=== PATIENT | male | born 1970 | race Caucasian/White ===

== ENCOUNTER 2021-06-17 04:06 | Inpatient (IN) ==
[2021-06-17] MEDS ORDERED: *HR* Heparin 5,000 UNIT/ML VIAL IVP ONE (04:10)
[2021-06-17] MEDS ORDERED: Aspirin 325 MG TABLET PO ONE (04:12)
[2021-06-17] MEDS ORDERED: Nitroglycerin 0.4 MG TAB.SUBL SL ONE (04:19)
[2021-06-17] MEDS: Nitroglycerin 0.4 MG TAB.SUBL SL PRN ×4 (04:20→07:37)
[2021-06-17 04:22] LABS: Basophils # 0.1 K/mcL (0.0-0.2); Basophils % 0.5 %; Eosinophils # 0.1 K/mcL (0.0-0.6); Eosinophils % 0.9 %; Hematocrit 45.7 % (37.5-50.1); Hemoglobin 15.5 g/dL (12.9-16.9); Immature Granulocytes % 0.2 % (0-4); Lymphocytes # 3.9 K/mcL (0.6-4.6); Lymphocytes % 32.2 %; Mean Corpuscular HGB Conc 33.9 g/dL (31.6-35.5); Mean Corpuscular Hemoglobin 30.6 pg (28.0-33.3); Mean Corpuscular Volume 90.1 fL (83.0-100.0); Mean Platelet Volume 9.3 fL (9.4-12.4); Monocytes # 1.1 K/mcL (0.0-1.3); Monocytes % 8.9 %; Platelet Count 268 K/mcL (140-400); Red Blood Count 5.07 M/mcL (4.19-5.50); Red Cell Distribution Width 13.2 % (11.5-14.5); Segmented Neutrophils % 57.3 %; White Blood Count 12.2 K/mcL (4.3-11.1)
[2021-06-17] MEDS ORDERED: *HR* Ticagrelor 90 MG TABLET PO ONE (04:24)
[2021-06-17 04:29] LABS: Prothrombin Time 10.8 Seconds (9.4-12.1)
[2021-06-17 04:32] LABS: Activated Partial Thrombo Time 32.8 Seconds (26.0-36.0)
[2021-06-17] MEDS ORDERED: Nitroglycerin 1,000 MCG/5 ML VIAL IV ONE (04:36)
[2021-06-17] MEDS ORDERED: 0.9 % Sodium Chloride 2,000 ML ONE (04:36)
[2021-06-17] MEDS ORDERED: *HR* Heparin 10,000 UNIT/10 ML VIAL ONE (04:36)
[2021-06-17] MEDS ORDERED: Morphine Sulfate 2 MG/ML SYRINGE IVP ONE (04:36)
[2021-06-17] MEDS ORDERED: ISOVUE-370 200 ML INFUS..BTL ONE ×2 (04:36→05:17)
[2021-06-17] MEDS ORDERED: Heparin 1,000 UNITS/500 mL 500 ML ONE ×2 (04:36→05:05)
[2021-06-17] MEDS ORDERED: Tirofiban 12.5 MG/250ML 12.5 MG/250 ML BAG ONE (04:42)
[2021-06-17 04:44] LABS: BUN/Creatinine Ratio 18 (6-26); Blood Urea Nitrogen 19 mg/dL (6-20); Calcium 8.9 mg/dL (8.6-10.3); Carbon Dioxide 21 mEq/L (23-29); Chloride 105 mEq/L (98-107); Glucose 124 mg/dL (70-105); Magnesium 1.9 mg/dL (1.6-2.6); Osmolality,Calculated 290 (280-300); Potassium 3.4 mEq/L (3.5-5.1); Sodium 138 mEq/L (136-145); eGFR For African Americans > 60 (> 60); eGFR For Non-African Americans > 60 (> 60)
[2021-06-17] MEDS ORDERED: *HR* Midazolam HCl 2 MG/2 ML VIAL ONE (04:46)
[2021-06-17] MEDS ORDERED: *HR* FentaNYL (PF) 100 MCG/2 ML VIAL ONE (04:46)
[2021-06-17 04:47] LABS: Troponin I 0.04 ng/mL (< 0.04)
[2021-06-17] MEDS ORDERED: Ondansetron 4 MG/2 ML VIAL ONE (04:57)
[2021-06-17 05:17] LABS: Influenza A PCR Negative (Negative); Influenza B PCR Negative (Negative); Resp. Syncytial Virus PCR Negative (Negative)
[2021-06-17 05:19] LABS: SARS-CoV-2 by PCR (In House) Negative (Negative)
[2021-06-17] MEDS ORDERED: Perflutren Lipid Microsphere 1.3 ML in 0.9 % Sodium Chloride 8.7 ML IVP PRN (05:43)
[2021-06-17] MEDS ORDERED: Tirofiban 12.5 MG/250ML 12.5 MG/250 ML BAG IVC SCH (05:45)
[2021-06-17] MEDS ORDERED: *HR* Ticagrelor 90 MG TABLET PO SCH (09:00)
[2021-06-17] MEDS ORDERED: Metoprolol XL (24 HR) Succ 25 MG TAB.ER.24H PO SCH (09:00)
[2021-06-17] MEDS: Acetaminophen 325 MG TABLET PO PRN ×2 (09:18→23:14)
[2021-06-17] MEDS ORDERED: Potassium Chloride Elixir 20 MEQ/15 ML UDC PO ONE (12:17)
[2021-06-17] MEDS ORDERED: amLODIPine 5 MG TABLET PO SCH (13:45)
[2021-06-17] MEDS ORDERED: *HR* Labetalol 20 MG/4 ML SYRINGE IVP ONE (15:04)
[2021-06-17] MEDS: Ketorolac 30 MG/ML VIAL IVP PRN ×2 (15:08→21:24)
[2021-06-17] MEDS ORDERED: Nitroglycerin 0.4 MG PATCH.TD24 TD SCH (15:30)
[2021-06-17] MEDS: *HR* Ticagrelor 90 MG TABLET PO SCH (19:16)
[2021-06-18] MEDS: Ketorolac 30 MG/ML VIAL IVP PRN ×2 (05:22→21:07)
[2021-06-18] MEDS: *HR* Ticagrelor 90 MG TABLET PO SCH ×2 (05:23→18:11)
[2021-06-18 06:11] LABS: Basophils % 0.4 %; Eosinophils # 0.1 K/mcL (0.0-0.6); Eosinophils % 0.5 %; Hematocrit 44.6 % (37.5-50.1); Hemoglobin 14.6 g/dL (12.9-16.9); Immature Granulocytes % 0.5 % (0-4); Lymphocytes % 18.2 %; Mean Corpuscular HGB Conc 32.7 g/dL (31.6-35.5); Mean Corpuscular Hemoglobin 30.4 pg (28.0-33.3); Mean Corpuscular Volume 92.7 fL (83.0-100.0); Mean Platelet Volume 9.6 fL (9.4-12.4); Monocytes # 0.8 K/mcL (0.0-1.3); Neutrophils # 8.1 K/mcL (1.6-8.9); Platelet Count 203 K/mcL (140-400); Red Blood Count 4.81 M/mcL (4.19-5.50); Red Cell Distribution Width 13.5 % (11.5-14.5); Segmented Neutrophils % 73.4 %; White Blood Count 11.1 K/mcL (4.3-11.1)
[2021-06-18 06:31] LABS: BUN/Creatinine Ratio 17 (6-26); Blood Urea Nitrogen 18 mg/dL (6-20); Calcium 8.4 mg/dL (8.6-10.3); Carbon Dioxide 25 mEq/L (23-29); Chloride 104 mEq/L (98-107); Glucose 97 mg/dL (70-105); Osmolality,Calculated 284 (280-300); Sodium 136 mEq/L (136-145); eGFR For African Americans > 60 (> 60); eGFR For Non-African Americans > 60 (> 60)
[2021-06-18] MEDS ORDERED: EPINEPHrine 1 MG/ML VIAL IV PRN (07:00)
[2021-06-18] MEDS ORDERED: Aspirin desensitization 4 mg/ml PO ONE ×4 (07:00)
[2021-06-18] MEDS ORDERED: EPINEPHrine 1 MG/ML VIAL IM PRN (07:00)
[2021-06-18] MEDS ORDERED: methylPREDNISolone 125 MG/2 ML VIAL IVP PRN (07:00)
[2021-06-18] MEDS ORDERED: Famotidine 20 MG/2 ML VIAL IVP PRN (07:00)
[2021-06-18] MEDS ORDERED: Aspirin 81 MG TAB.CHEW PO ONE ×2 (07:00→08:56)
[2021-06-18] MEDS ORDERED: Aspirin desensitization 1 mg/ml PO ONE ×2 (07:00)
[2021-06-18] MEDS: Aspirin desensitization 1 mg/ml PO ONE ×2 (08:31→10:12)
[2021-06-18] MEDS ORDERED: Aspirin 81 MG TAB.CHEW ONE (13:02)
[2021-06-19] MEDS: *HR* Ticagrelor 90 MG TABLET PO SCH (05:43)
[2021-06-19 07:59] VITALS: TEMP 98.5
[2021-06-19] MEDS ORDERED: Aspirin 81 MG TAB.CHEW PO SCH (09:00)
[2021-06-19] MEDS ORDERED: Metoprolol XL (24 HR) Succ 25 MG TAB.ER.24H PO SCH (09:00)
[2021-06-19] MEDS ORDERED: Fluticasone Propionate Nasal 50 MCG/SPRAY BOTTLE NS SCH (09:30)
[2021-06-19 10:34] VITALS: BP 116/83; PULSE 94; O2SAT 96
== END 2021-06-19 11:15 | disposition home or self-care (01) | DRG 247 ==
LOC: EMEROOARM 04:06 → ICNU 04:51
PROVIDERS: ADMIT Internal Medicine; ATTEND Internal Medicine

== ENCOUNTER 2021-08-08 09:43 | Inpatient (IN) ==
[2021-08-08] MEDS ORDERED: Acetaminophen 325 MG TABLET PO PRN (13:50)
[2021-08-08] MEDS ORDERED: Naloxone 0.4 MG/ML INJ IVP PRN (13:50)
[2021-08-08] MEDS ORDERED: *HR* Heparin 5,000 UNIT/ML VIAL IVP PRN ×2 (13:51)
[2021-08-08] MEDS ORDERED: Heparin 25,000UNIT/250ML 1/2NS 25,000 UNIT/250 ML IV.SOLN IVC SCH (14:00)
[2021-08-08] MEDS ORDERED: Fluticasone Propionate Nasal 50 MCG/SPRAY BOTTLE NS PRN (14:26)
[2021-08-08] MEDS: Morphine Sulfate 2 MG/ML SYRINGE IVP PRN ×2 (14:51→20:18)
[2021-08-08] MEDS ORDERED: Aspirin Enteric Coated 325 MG Tablet PO SCH (15:00)
[2021-08-08] MEDS: Colchicine 0.6 MG TABLET PO SCH ×2 (15:22→20:17)
[2021-08-08] MEDS: Aspirin Enteric Coated 81 MG Tablet PO SCH ×2 (15:23→20:17)
[2021-08-08] MEDS: Aspirin Enteric Coated 325 MG Tablet PO SCH ×2 (15:23→20:17)
[2021-08-08] MEDS ORDERED: *HR* Heparin 5,000 UNIT/ML VIAL SQ SCH (18:00)
[2021-08-08 20:06] LABS: Hematocrit 40.4 % (37.5-50.1); Hemoglobin 13.6 g/dL (12.9-16.9); Mean Corpuscular HGB Conc 33.7 g/dL (31.6-35.5); Mean Corpuscular Hemoglobin 30.6 pg (28.0-33.3); Mean Platelet Volume 9.8 fL (9.4-12.4); Platelet Count 193 K/mcL (140-400); Red Blood Count 4.44 M/mcL (4.19-5.50); Red Cell Distribution Width 13.2 % (11.5-14.5); White Blood Count 8.9 K/mcL (4.3-11.1)
[2021-08-08 20:13] LABS: INR 1.1; Prothrombin Time 11.8 Seconds (9.4-12.1)
[2021-08-08 20:15] LABS: Heparin anti-factor XA UFH < 0.04 IU/mL (0.30-0.70)
[2021-08-08] MEDS: *HR* Ticagrelor 90 MG TABLET PO SCH (20:17)
[2021-08-08] MEDS ORDERED: Chlorhexidine Rinse 15 ML MOUTHWASH MM SCH (21:00)
[2021-08-08 21:43] LABS: Basophils % 0.5 %; Eosinophils # 0.1 K/mcL (0.0-0.6); Eosinophils % 0.7 %; Hematocrit 39.9 % (37.5-50.1); Hemoglobin 13.6 g/dL (12.9-16.9); Immature Granulocytes % 0.2 % (0-4); Lymphocytes % 23.4 %; Mean Corpuscular HGB Conc 34.1 g/dL (31.6-35.5); Mean Corpuscular Hemoglobin 31.1 pg (28.0-33.3); Mean Corpuscular Volume 91.3 fL (83.0-100.0); Mean Platelet Volume 9.8 fL (9.4-12.4); Monocytes # 0.8 K/mcL (0.0-1.3); Monocytes % 8.7 %; Neutrophils # 5.7 K/mcL (1.6-8.9); Platelet Count 207 K/mcL (140-400); Red Blood Count 4.37 M/mcL (4.19-5.50); Red Cell Distribution Width 13.2 % (11.5-14.5); Segmented Neutrophils % 66.5 %; White Blood Count 8.6 K/mcL (4.3-11.1)
[2021-08-08 21:55] LABS: INR 1.1; Prothrombin Time 11.9 Seconds (9.4-12.1)
[2021-08-08 21:56] LABS: Estimated Average Glucose 111 mg/dl; Hemoglobin A1C 5.5 %
[2021-08-08 21:57] LABS: Activated Partial Thrombo Time 36.1 Seconds (26.0-36.0)
[2021-08-08 22:01] LABS: BUN/Creatinine Ratio 15 (6-26); Blood Urea Nitrogen 13 mg/dL (6-20); Calcium 8.8 mg/dL (8.6-10.3); Carbon Dioxide 25 mEq/L (23-29); Chloride 107 mEq/L (98-107); Chol/HDL Ratio 3.2 (0-4.9); Cholesterol 120 mg/dL (< 200); Glucose 99 mg/dL (70-105); HDL Cholesterol 38 mg/dL (40-59); LDL Cholesterol,Calculated 48 mg/dL (< 100); Osmolality,Calculated 286 (280-300); Potassium 3.4 mEq/L (3.5-5.1); Sodium 138 mEq/L (136-145); Triglycerides 170 mg/dL (< 150); eGFR For African Americans > 60 (> 60); eGFR For Non-African Americans > 60 (> 60)
[2021-08-09] MEDS: Morphine Sulfate 2 MG/ML SYRINGE IVP PRN (02:46)
[2021-08-09 02:59] LABS: Basophils % 0.5 %; Eosinophils # 0.1 K/mcL (0.0-0.6); Eosinophils % 0.8 %; Hematocrit 41.6 % (37.5-50.1); Hemoglobin 14.1 g/dL (12.9-16.9); Immature Granulocytes % 0.2 % (0-4); Lymphocytes % 22.9 %; Mean Corpuscular HGB Conc 33.9 g/dL (31.6-35.5); Mean Corpuscular Hemoglobin 31.1 pg (28.0-33.3); Mean Corpuscular Volume 91.8 fL (83.0-100.0); Mean Platelet Volume 9.6 fL (9.4-12.4); Monocytes # 0.7 K/mcL (0.0-1.3); Platelet Count 187 K/mcL (140-400); Red Blood Count 4.53 M/mcL (4.19-5.50); Red Cell Distribution Width 13.4 % (11.5-14.5); Segmented Neutrophils % 67.6 %; White Blood Count 8.8 K/mcL (4.3-11.1)
[2021-08-09 03:26] LABS: BUN/Creatinine Ratio 15 (6-26); Blood Urea Nitrogen 12 mg/dL (6-20); Calcium 8.6 mg/dL (8.6-10.3); Carbon Dioxide 23 mEq/L (23-29); Chloride 108 mEq/L (98-107); Glucose 89 mg/dL (70-105); Magnesium 1.9 mg/dL (1.6-2.6); Osmolality,Calculated 285 (280-300); Potassium 3.9 mEq/L (3.5-5.1); Sodium 138 mEq/L (136-145); eGFR For African Americans > 60 (> 60); eGFR For Non-African Americans > 60 (> 60)
[2021-08-09] MEDS ORDERED: CeFAZolin Syr 2,000MG/20 ML 2,000 MG/20 ML SYRINGE IVPB ONE (06:00)
[2021-08-09] MEDS ORDERED: Aspirin 81 MG TAB.CHEW PO ONE (06:00)
[2021-08-09] MEDS ORDERED: *HR* FentaNYL (PF) 250 MCG/5 ML VIAL ONE (06:58)
[2021-08-09] MEDS ORDERED: *HR* Midazolam HCl 5 MG/5 ML VIAL IVP ONE (06:58)
[2021-08-09] MEDS ORDERED: *HR* Rocuronium Bromide 50 MG/5 ML VIAL ONE (06:58)
[2021-08-09] MEDS ORDERED: Ondansetron 4 MG/2 ML VIAL ONE (07:01)
[2021-08-09] MEDS ORDERED: Lidocaine 2% Syringe 100 MG/5 ML ONE (07:01)
[2021-08-09] MEDS ORDERED: Famotidine 20 MG/2 ML VIAL ONE (07:01)
[2021-08-09] MEDS ORDERED: *HR* Etomidate 20 MG/10 ML AMPUL IVP ONE (07:01)
[2021-08-09] MEDS ORDERED: *HR* OxyCODONE Immed Rel 5 MG TABLET PO PRN (08:02)
[2021-08-09] MEDS ORDERED: Ondansetron 4 MG/2 ML VIAL IVP PRN (08:02)
[2021-08-09] MEDS ORDERED: *HR* Metoprolol 5 MG/5 ML VIAL IVP PRN (08:02)
[2021-08-09] MEDS ORDERED: Aspirin 81 MG TAB.CHEW PO SCH (09:00)
[2021-08-09] MEDS ORDERED: *HR* Propofol 200 MG/20 ML VIAL IVP ONE (09:21)
[2021-08-09] MEDS ORDERED: Sugammadex Sodium 200 MG/2 ML VIAL IV ONE (09:27)
[2021-08-09] MEDS: *HR* FentaNYL (PF) 100 MCG/2 ML VIAL IVP PRN ×3 (09:59→10:19)
[2021-08-09] MEDS ORDERED: Acetaminophen IV 1,000 MG/100 ML BAG IVPB ONE (10:00)
[2021-08-09] MEDS: *HR* HYDROmorphone PF 0.5 MG/0.5 ML SYRINGE IVP PRN ×4 (10:31→11:13)
[2021-08-09] MEDS: Aspirin Enteric Coated 325 MG Tablet PO SCH ×3 (12:06→21:26)
[2021-08-09] MEDS: *HR* Ticagrelor 90 MG TABLET PO SCH ×2 (12:06→21:25)
[2021-08-09] MEDS: *HR* Heparin 5,000 UNIT/ML VIAL SQ SCH ×3 (12:06→21:26)
[2021-08-09] MEDS: Isosorbide MONOnitrate (24 HR) 30 MG TAB.ER.24H PO SCH (12:06)
[2021-08-09] MEDS: Metoprolol XL (24 HR) Succ 25 MG TAB.ER.24H PO SCH (12:06)
[2021-08-09] MEDS: Colchicine 0.6 MG TABLET PO SCH ×2 (12:06→21:25)
[2021-08-09] MEDS: Ketorolac 30 MG/ML VIAL IVP SCH ×3 (12:11→23:24)
[2021-08-09 13:33] LABS: Basophils % 0.1 %; Hematocrit 44.7 % (37.5-50.1); Hemoglobin 15.1 g/dL (12.9-16.9); Immature Granulocytes % 0.4 % (0-4); Lymphocytes # 0.4 K/mcL (0.6-4.6); Lymphocytes % 2.6 %; Mean Corpuscular HGB Conc 33.8 g/dL (31.6-35.5); Mean Corpuscular Hemoglobin 31.2 pg (28.0-33.3); Mean Corpuscular Volume 92.4 fL (83.0-100.0); Mean Platelet Volume 9.5 fL (9.4-12.4); Monocytes # 0.4 K/mcL (0.0-1.3); Monocytes % 2.4 %; Platelet Count 190 K/mcL (140-400); Red Blood Count 4.84 M/mcL (4.19-5.50); Red Cell Distribution Width 13.2 % (11.5-14.5); Segmented Neutrophils % 94.5 %
[2021-08-09 13:41] LABS: Neutrophils # 14.5 K/mcL (1.6-8.9); White Blood Count 15.3 K/mcL (4.3-11.1)
[2021-08-09 13:47] LABS: INR 1.1; Prothrombin Time 12.2 Seconds (9.4-12.1)
[2021-08-09 13:54] LABS: BUN/Creatinine Ratio 12 (6-26); Blood Urea Nitrogen 11 mg/dL (6-20); Calcium 8.7 mg/dL (8.6-10.3); Carbon Dioxide 28 mEq/L (23-29); Chloride 104 mEq/L (98-107); Glucose 135 mg/dL (70-105); Magnesium 1.8 mg/dL (1.6-2.6); Osmolality,Calculated 285 (280-300); Potassium 3.6 mEq/L (3.5-5.1); Sodium 137 mEq/L (136-145); eGFR For African Americans > 60 (> 60); eGFR For Non-African Americans > 60 (> 60)
[2021-08-09] MEDS: *HR* OxyCODONE/APAP 5/325 TABLET PO PRN ×2 (13:54→23:25)
[2021-08-09] MEDS: CeFAZolin 2 GM/120 ML BAG IVPB SCH ×2 (15:24→23:31)
[2021-08-09] MEDS: Gabapentin 300 MG CAPSULE PO SCH ×2 (15:25→21:26)
[2021-08-09] MEDS: *HR* HYDROmorphone (PF) 1 MG/ML SYRINGE IVP PRN (20:06)
[2021-08-09] MEDS: Melatonin 3 MG TABLET PO PRN (23:25)
[2021-08-10] MEDS: Ondansetron ODT 4 MG TAB.RAPDIS SL PRN (00:21)
[2021-08-10] MEDS: Albumin Human 5% 12.5 GM/250 ML IV.SOLN IVPB PRN ×3 (01:12→08:40)
[2021-08-10] MEDS: Nitroglycerin 0.4 MG TAB.SUBL SL PRN ×2 (01:32→01:39)
[2021-08-10] MEDS: *HR* HYDROmorphone (PF) 1 MG/ML SYRINGE IVP PRN (01:42)
[2021-08-10 01:59] LABS: Basophils % 0.1 %; Hematocrit 40.9 % (37.5-50.1); Hemoglobin 13.6 g/dL (12.9-16.9); Immature Granulocytes % 0.3 % (0-4); Lymphocytes # 0.5 K/mcL (0.6-4.6); Lymphocytes % 3.5 %; Mean Corpuscular HGB Conc 33.3 g/dL (31.6-35.5); Mean Corpuscular Hemoglobin 30.5 pg (28.0-33.3); Mean Corpuscular Volume 91.7 fL (83.0-100.0); Mean Platelet Volume 9.8 fL (9.4-12.4); Monocytes # 0.8 K/mcL (0.0-1.3); Monocytes % 5.5 %; Neutrophils # 13.1 K/mcL (1.6-8.9); Platelet Count 240 K/mcL (140-400); Red Blood Count 4.46 M/mcL (4.19-5.50); Red Cell Distribution Width 13.2 % (11.5-14.5); Segmented Neutrophils % 90.6 %; White Blood Count 14.5 K/mcL (4.3-11.1)
[2021-08-10] MEDS ORDERED: *HR* Metoprolol 5 MG/5 ML VIAL IVP ONE (02:00)
[2021-08-10 02:04] LABS: INR 1.2
[2021-08-10 02:14] LABS: BUN/Creatinine Ratio 16 (6-26); Blood Urea Nitrogen 15 mg/dL (6-20); Calcium 8.4 mg/dL (8.6-10.3); Carbon Dioxide 22 mEq/L (23-29); Chloride 104 mEq/L (98-107); Glucose 180 mg/dL (70-105); Magnesium 1.9 mg/dL (1.6-2.6); Osmolality,Calculated 287 (280-300); Potassium 4.3 mEq/L (3.5-5.1); Sodium 136 mEq/L (136-145); eGFR For African Americans > 60 (> 60); eGFR For Non-African Americans > 60 (> 60)
[2021-08-10 02:23] LABS: Troponin I 0.05 ng/mL (< 0.04)
[2021-08-10] MEDS ORDERED: Morphine Sulfate 2 MG/ML SYRINGE IVP ONE (03:58)
[2021-08-10] MEDS ORDERED: 0.9 % Sodium Chloride 1,000 ML IVC ONE (05:03)
[2021-08-10] MEDS ORDERED: Ketorolac 30 MG/ML VIAL IVP ONE (08:23)
[2021-08-10] MEDS: CeFAZolin 2 GM/120 ML BAG IVPB SCH ×3 (08:36→23:35)
[2021-08-10] MEDS: Colchicine 0.6 MG TABLET PO SCH ×2 (08:37→20:21)
[2021-08-10] MEDS: *HR* Ticagrelor 90 MG TABLET PO SCH ×2 (08:37→20:21)
[2021-08-10] MEDS: *HR* Heparin 5,000 UNIT/ML VIAL SQ SCH ×3 (08:37→20:22)
[2021-08-10] MEDS: Metoprolol XL (24 HR) Succ 25 MG TAB.ER.24H PO SCH (08:38)
[2021-08-10] MEDS: Gabapentin 300 MG CAPSULE PO SCH (08:38)
[2021-08-10] MEDS: Pantoprazole 40 MG VIAL IVP SCH (08:38)
[2021-08-10] MEDS: Aspirin Enteric Coated 325 MG Tablet PO SCH ×3 (08:41→23:29)
[2021-08-10] MEDS: Acetaminophen IV 1,000 MG/100 ML BAG IVPB SCH ×3 (12:19→23:34)
[2021-08-10] MEDS: predniSONE 20 MG TABLET PO SCH (13:54)
[2021-08-10] MEDS ORDERED: 0.9 % Sodium Chloride 1,000 ML IVC SCH (16:00)
[2021-08-10] MEDS: Ketorolac 30 MG/ML VIAL IVP PRN ×2 (16:10→23:40)
[2021-08-10] MEDS ORDERED: 0.9 % Sodium Chloride 500 ML IVC ONE (17:59)
[2021-08-10] MEDS: Melatonin 3 MG TABLET PO PRN (20:21)
[2021-08-11 02:40] LABS: Basophils % 0.1 %; Hematocrit 33.2 % (37.5-50.1); Immature Granulocytes % 0.4 % (0-4); Lymphocytes # 0.6 K/mcL (0.6-4.6); Lymphocytes % 4.1 %; Mean Corpuscular HGB Conc 32.5 g/dL (31.6-35.5); Mean Corpuscular Hemoglobin 30.4 pg (28.0-33.3); Mean Corpuscular Volume 93.5 fL (83.0-100.0); Mean Platelet Volume 10.2 fL (9.4-12.4); Monocytes # 0.8 K/mcL (0.0-1.3); Monocytes % 4.9 %; Neutrophils # 14.2 K/mcL (1.6-8.9); Platelet Count 173 K/mcL (140-400); Red Blood Count 3.55 M/mcL (4.19-5.50); Red Cell Distribution Width 13.9 % (11.5-14.5); Segmented Neutrophils % 90.5 %; White Blood Count 15.7 K/mcL (4.3-11.1)
[2021-08-11 02:41] LABS: Hemoglobin 10.8 g/dL (12.9-16.9)
[2021-08-11 03:06] LABS: BUN/Creatinine Ratio 19 (6-26); Blood Urea Nitrogen 16 mg/dL (6-20); Calcium 8.2 mg/dL (8.6-10.3); Carbon Dioxide 23 mEq/L (23-29); Chloride 111 mEq/L (98-107); Glucose 151 mg/dL (70-105); Osmolality,Calculated 292 (280-300); Potassium 4.5 mEq/L (3.5-5.1); Sodium 139 mEq/L (136-145); eGFR For African Americans > 60 (> 60); eGFR For Non-African Americans > 60 (> 60)
[2021-08-11] MEDS: Acetaminophen IV 1,000 MG/100 ML BAG IVPB SCH ×3 (05:12→20:05)
[2021-08-11] MEDS: *HR* OxyCODONE/APAP 5/325 TABLET PO PRN ×3 (09:03→20:04)
[2021-08-11] MEDS: *HR* Heparin 5,000 UNIT/ML VIAL SQ SCH ×3 (09:04→20:03)
[2021-08-11] MEDS: Pantoprazole 40 MG VIAL IVP SCH (09:04)
[2021-08-11] MEDS: predniSONE 20 MG TABLET PO SCH (09:04)
[2021-08-11] MEDS: Colchicine 0.6 MG TABLET PO SCH ×2 (09:04→20:13)
[2021-08-11] MEDS: Aspirin Enteric Coated 325 MG Tablet PO SCH ×3 (09:04→20:14)
[2021-08-11] MEDS: *HR* Ticagrelor 90 MG TABLET PO SCH ×2 (09:04→20:05)
[2021-08-11] MEDS: Piperacillin/Tazobactam 3.375 GM in 0.9 % Sodium Chloride Mini Bag 100 ML IVPB SCH ×2 (09:05→16:52)
[2021-08-11] MEDS: Gabapentin 300 MG CAPSULE PO SCH ×3 (09:52→20:04)
[2021-08-11] MEDS: CeFAZolin 2 GM/120 ML BAG IVPB SCH (09:53)
[2021-08-11] MEDS: *HR* HYDROmorphone (PF) 1 MG/ML SYRINGE IVP PRN (17:01)
[2021-08-11] MEDS: Melatonin 3 MG TABLET PO PRN (20:03)
[2021-08-12] MEDS: Piperacillin/Tazobactam 3.375 GM in 0.9 % Sodium Chloride Mini Bag 100 ML IVPB SCH ×4 (00:16→23:50)
[2021-08-12] MEDS: *HR* OxyCODONE/APAP 5/325 TABLET PO PRN ×3 (00:16→20:02)
[2021-08-12] MEDS: Acetaminophen IV 1,000 MG/100 ML BAG IVPB SCH ×2 (00:16→05:11)
[2021-08-12] MEDS: Ondansetron ODT 4 MG TAB.RAPDIS SL PRN ×2 (04:25→20:03)
[2021-08-12] MEDS: *HR* HYDROmorphone (PF) 1 MG/ML SYRINGE IVP PRN ×3 (05:11→15:13)
[2021-08-12 06:25] LABS: Basophils % 0.1 %; Eosinophils % 0.1 %; Hematocrit 33.4 % (37.5-50.1); Hemoglobin 11.1 g/dL (12.9-16.9); Immature Granulocytes % 0.7 % (0-4); Lymphocytes # 1.2 K/mcL (0.6-4.6); Lymphocytes % 6.7 %; Mean Corpuscular HGB Conc 33.2 g/dL (31.6-35.5); Mean Corpuscular Hemoglobin 31.4 pg (28.0-33.3); Mean Corpuscular Volume 94.4 fL (83.0-100.0); Mean Platelet Volume 10.4 fL (9.4-12.4); Monocytes # 1.4 K/mcL (0.0-1.3); Monocytes % 7.7 %; Platelet Count 214 K/mcL (140-400); Red Blood Count 3.54 M/mcL (4.19-5.50); Red Cell Distribution Width 14.1 % (11.5-14.5); Segmented Neutrophils % 84.7 %; White Blood Count 17.7 K/mcL (4.3-11.1)
[2021-08-12 06:45] LABS: BUN/Creatinine Ratio 21 (6-26); Blood Urea Nitrogen 18 mg/dL (6-20); Calcium 8.5 mg/dL (8.6-10.3); Carbon Dioxide 25 mEq/L (23-29); Chloride 108 mEq/L (98-107); Glucose 114 mg/dL (70-105); Magnesium 2.1 mg/dL (1.6-2.6); Osmolality,Calculated 291 (280-300); Potassium 4.3 mEq/L (3.5-5.1); Sodium 139 mEq/L (136-145); eGFR For African Americans > 60 (> 60); eGFR For Non-African Americans > 60 (> 60)
[2021-08-12] MEDS: *HR* Heparin 5,000 UNIT/ML VIAL SQ SCH ×3 (08:18→20:03)
[2021-08-12] MEDS: predniSONE 20 MG TABLET PO SCH (08:18)
[2021-08-12] MEDS: Isosorbide MONOnitrate (24 HR) 30 MG TAB.ER.24H PO SCH (08:18)
[2021-08-12] MEDS: Aspirin Enteric Coated 325 MG Tablet PO SCH ×3 (08:18→20:02)
[2021-08-12] MEDS: Pantoprazole 40 MG VIAL IVP SCH (08:18)
[2021-08-12] MEDS: *HR* Ticagrelor 90 MG TABLET PO SCH ×2 (08:18→20:03)
[2021-08-12] MEDS: Colchicine 0.6 MG TABLET PO SCH ×2 (08:18→20:02)
[2021-08-12] MEDS: Gabapentin 300 MG CAPSULE PO SCH ×3 (08:19→20:02)
[2021-08-12] MEDS: Metoprolol XL (24 HR) Succ 25 MG TAB.ER.24H PO SCH (08:19)
[2021-08-12] MEDS ORDERED: Acetaminophen 325 MG TABLET PO PRN (08:26)
[2021-08-12 16:09] LABS: Bilirubin,Urine Negative (Negative); Blood,Urine Negative (Negative); Clarity,Urine Clear (Clear); Color,Urine Light-Yellow (Yellow); Glucose,Urine (UA) Normal (Normal); Ketones,Urine Trace mg/dL (Negative); Leukocyte Esterase,Urine Negative (Negative); Mucus,Urine Few per lpf (None-Few); Nitrite,Urine Negative (Negative); PH,Urine 6.5 pH Units (5.0-8.0); Protein,Urine 30 mg/dL (Neg-Trace); RBC,Urine 0-3 per hpf (0-3); Specific Gravity,Urine > 1.030 (1.010-1.025); Urobilinogen,Urine Normal (Normal); WBC,Urine 0-3 per hpf (0-3)
[2021-08-12] MEDS ORDERED: Furosemide 20 MG TABLET PO PRN (16:23)
[2021-08-13] MEDS: *HR* OxyCODONE/APAP 5/325 TABLET PO PRN ×3 (00:02→19:53)
[2021-08-13 06:05] LABS: Basophils % 0.2 %; Eosinophils % 0.2 %; Hematocrit 36.1 % (37.5-50.1); Hemoglobin 11.6 g/dL (12.9-16.9); Immature Granulocytes % 0.8 % (0-4); Lymphocytes % 12.5 %; Mean Corpuscular HGB Conc 32.1 g/dL (31.6-35.5); Mean Corpuscular Hemoglobin 30.5 pg (28.0-33.3); Mean Platelet Volume 10.4 fL (9.4-12.4); Monocytes # 1.2 K/mcL (0.0-1.3); Monocytes % 7.4 %; Neutrophils # 12.5 K/mcL (1.6-8.9); Platelet Count 248 K/mcL (140-400); Red Cell Distribution Width 14.1 % (11.5-14.5); Segmented Neutrophils % 78.9 %; White Blood Count 15.9 K/mcL (4.3-11.1)
[2021-08-13 06:22] LABS: BUN/Creatinine Ratio 19 (6-26); Blood Urea Nitrogen 18 mg/dL (6-20); Calcium 8.5 mg/dL (8.6-10.3); Carbon Dioxide 27 mEq/L (23-29); Chloride 109 mEq/L (98-107); Glucose 92 mg/dL (70-105); Osmolality,Calculated 296 (280-300); Potassium 3.6 mEq/L (3.5-5.1); Sodium 142 mEq/L (136-145); eGFR For African Americans > 60 (> 60); eGFR For Non-African Americans > 60 (> 60)
[2021-08-13] MEDS: Aspirin Enteric Coated 325 MG Tablet PO SCH ×3 (08:35→20:26)
[2021-08-13] MEDS: Ondansetron ODT 4 MG TAB.RAPDIS SL PRN (08:36)
[2021-08-13] MEDS: Gabapentin 300 MG CAPSULE PO SCH ×3 (08:36→20:26)
[2021-08-13] MEDS: Colchicine 0.6 MG TABLET PO SCH ×2 (08:36→20:26)
[2021-08-13] MEDS: predniSONE 20 MG TABLET PO SCH (08:37)
[2021-08-13] MEDS: Metoprolol XL (24 HR) Succ 25 MG TAB.ER.24H PO SCH (08:38)
[2021-08-13] MEDS: *HR* Ticagrelor 90 MG TABLET PO SCH ×2 (08:39→20:26)
[2021-08-13] MEDS: *HR* Heparin 5,000 UNIT/ML VIAL SQ SCH ×3 (08:40→20:25)
[2021-08-13] MEDS: Piperacillin/Tazobactam 3.375 GM in 0.9 % Sodium Chloride Mini Bag 100 ML IVPB SCH (08:49)
[2021-08-13] MEDS: *HR* HYDROmorphone (PF) 1 MG/ML SYRINGE IVP PRN ×2 (12:43→22:46)
[2021-08-13 13:43] LABS: Adenovirus F 40/41 PCR Not detected (Not detect); Astrovirus PCR Not detected (Not detect); C.difficile Toxin A/B Gene PCR Not detected (Not detect); Campylobacter by PCR Not detected (Not detect); Cryptosporidium by PCR Not detected (Not detect); Cyclospora cayetanensis PCR Not detected (Not detect); E. coli O157 by PCR Not detected (Not detect); Entamoeba histolytica PCR Not detected (Not detect); Enteroaggregative E.coli(EAEC) Not detected (Not detect); Enteropathogenic E.coli(EPEC) Not detected (Not detect); Enterotoxigenic E.coli (ETEC) Not detected (Not detect); Giardia lamblia PCR Not detected (Not detect); Norovirus GI/GII PCR Not detected (Not detect); Plesiomonas shigelloides PCR Not detected (Not detect); Rotavirus A PCR Not detected (Not detect); Salmonella PCR Not detected (Not detect); Sapovirus PCR Not detected (Not detect); Shig/EnteroinvasiveE coli EIEC Not detected (Not detect); Shigalike tox-prod E coli STEC Not detected (Not detect); Vibrio PCR Not detected (Not detect); Vibrio cholerae PCR Not detected (Not detect); Yersinia enterocolitica PCR Not detected (Not detect)
[2021-08-13] MEDS ORDERED: Lactobacillus 1 EACH CAP.SPRINK PO SCH (13:51)
[2021-08-13] MEDS ORDERED: Ondansetron ODT 4 MG TAB.RAPDIS SL PRN (13:55)
[2021-08-13] MEDS: Lactobacillus 1 EACH CAP.SPRINK PO SCH ×2 (15:03→20:26)
[2021-08-13] MEDS ORDERED: Ondansetron 4 MG/2 ML VIAL IVP ONE (19:35)
[2021-08-14 07:31] LABS: Basophils % 0.2 %; Eosinophils # 0.1 K/mcL (0.0-0.6); Eosinophils % 0.8 %; Hematocrit 37.8 % (37.5-50.1); Hemoglobin 12.2 g/dL (12.9-16.9); Immature Granulocytes % 0.9 % (0-4); Lymphocytes # 2.7 K/mcL (0.6-4.6); Lymphocytes % 19.3 %; Mean Corpuscular HGB Conc 32.3 g/dL (31.6-35.5); Mean Corpuscular Hemoglobin 30.3 pg (28.0-33.3); Mean Platelet Volume 9.7 fL (9.4-12.4); Monocytes # 1.2 K/mcL (0.0-1.3); Monocytes % 8.5 %; Neutrophils # 9.7 K/mcL (1.6-8.9); Platelet Count 277 K/mcL (140-400); Red Blood Count 4.02 M/mcL (4.19-5.50); Red Cell Distribution Width 13.6 % (11.5-14.5); Segmented Neutrophils % 70.3 %; White Blood Count 13.9 K/mcL (4.3-11.1)
[2021-08-14 07:52] LABS: BUN/Creatinine Ratio 27 (6-26); Blood Urea Nitrogen 21 mg/dL (6-20); Calcium 8.3 mg/dL (8.6-10.3); Carbon Dioxide 25 mEq/L (23-29); Chloride 107 mEq/L (98-107); Glucose 85 mg/dL (70-105); Osmolality,Calculated 288 (280-300); Potassium 3.9 mEq/L (3.5-5.1); Sodium 138 mEq/L (136-145); eGFR For African Americans > 60 (> 60); eGFR For Non-African Americans > 60 (> 60)
[2021-08-14] MEDS: *HR* Ticagrelor 90 MG TABLET PO SCH (09:57)
[2021-08-14] MEDS: Metoprolol XL (24 HR) Succ 25 MG TAB.ER.24H PO SCH (09:58)
[2021-08-14] MEDS: Lactobacillus 1 EACH CAP.SPRINK PO SCH (09:58)
[2021-08-14] MEDS: Aspirin Enteric Coated 325 MG Tablet PO SCH (09:59)
[2021-08-14] MEDS: Colchicine 0.6 MG TABLET PO SCH (09:59)
[2021-08-14] MEDS: Gabapentin 300 MG CAPSULE PO SCH (09:59)
[2021-08-14] MEDS: *HR* Heparin 5,000 UNIT/ML VIAL SQ SCH (10:03)
[2021-08-14] MEDS: *HR* OxyCODONE/APAP 5/325 TABLET PO PRN (10:11)
[2021-08-14 10:27] VITALS: BP 116/72; PULSE 61; TEMP 97.8; O2SAT 98
== END 2021-08-14 02:10 | disposition home or self-care (01) | DRG 270 ==
LOC: 2ANU → SUATTDRO 11:57 → 2NNU 08-09 11:48 → SUATTDRO 08-10 14:19 → 3NENU 08-13 21:10
PROVIDERS: ADMIT Internal Medicine; ATTEND Internal Medicine

== ENCOUNTER 2021-08-29 10:46 | Inpatient (IN) ==
[2021-08-29 11:24] LABS: Basophils % 0.2 %; Eosinophils % 0.1 %; Hemoglobin 13.2 g/dL (12.9-16.9); Immature Granulocytes % 0.5 % (0-4); Lymphocytes # 1.5 K/mcL (0.6-4.6); Lymphocytes % 10.4 %; Mean Corpuscular Hemoglobin 30.2 pg (28.0-33.3); Mean Corpuscular Volume 91.5 fL (83.0-100.0); Mean Platelet Volume 9.2 fL (9.4-12.4); Monocytes % 6.8 %; Neutrophils # 11.9 K/mcL (1.6-8.9); Platelet Count 335 K/mcL (140-400); Red Blood Count 4.37 M/mcL (4.19-5.50)
[2021-08-29 11:27] LABS: White Blood Count 14.5 K/mcL (4.3-11.1)
[2021-08-29 11:45] LABS: BUN/Creatinine Ratio 16 (6-26); Blood Urea Nitrogen 16 mg/dL (6-20); Carbon Dioxide 24 mEq/L (23-29); Chloride 110 mEq/L (98-107); Glucose 112 mg/dL (70-105); Osmolality,Calculated 296 (280-300); Potassium 3.9 mEq/L (3.5-5.1); Sodium 142 mEq/L (136-145); Troponin I 0.03 ng/mL (< 0.04); eGFR For African Americans > 60 (> 60); eGFR For Non-African Americans > 60 (> 60)
[2021-08-29] MEDS ORDERED: Morphine Sulfate 2 MG/ML SYRINGE IVP ONE (11:52)
[2021-08-29] MEDS ORDERED: Ondansetron 4 MG/2 ML VIAL IVP ONE (11:52)
[2021-08-29] MEDS ORDERED: Famotidine 20 MG/2 ML VIAL IVP ONE (12:35)
[2021-08-29] MEDS ORDERED: Isovue-370 500 ML BOTTLE IVP ONE (12:35)
[2021-08-29] MEDS ORDERED: Perflutren Lipid Microsphere 1.3 ML in 0.9 % Sodium Chloride 8.7 ML IVP PRN (12:36)
[2021-08-29 13:28] LABS: Adenovirus Not Detected (Not Detect); Bordetella Pertussis Not Detected (Not Detect); Chlamydophila pneumoniae Not Detected (Not Detect); Coronavirus 229E Not Detected (Not Detect); Coronavirus HKU1 Not Detected (Not Detect); Coronavirus NL63 Not Detected (Not Detect); Coronavirus OC43 Not Detected (Not Detect); Human Metapneumovirus Not Detected (Not Detect); Human Rhinovirus/Enterovirus Not Detected (Not Detect); Influenza A Subtype 2009 H1 Not Detected (Not Detect); Influenza B Not Detected (Not Detect); Mycoplasma pneumoniae Not Detected (Not Detect); Parainfluenza Virus 1 Not Detected (Not Detect); Parainfluenza Virus 2 Not Detected (Not Detect); Parainfluenza Virus 3 Not Detected (Not Detect); Parainfluenza Virus 4 Not Detected (Not Detect); Respiratory Syncytial Virus Not Detected (Not Detect); SARS-CoV-2 Not Detected (Not Detect)
[2021-08-29] MEDS ORDERED: Naloxone 0.4 MG/ML INJ IVP PRN (14:40)
[2021-08-29] MEDS ORDERED: GI Cocktail 40 ML EACH PO ONE (15:05)
[2021-08-29] MEDS: MethylPREDNISolone 40 MG/ML VIAL IVP SCH (16:01)
[2021-08-29] MEDS ORDERED: *HR* LORazepam 0.5 MG TABLET PO PRN (16:37)
[2021-08-29] MEDS ORDERED: Fluticasone Propionate Nasal 50 MCG/SPRAY BOTTLE NS PRN (16:37)
[2021-08-29] MEDS: Morphine Sulfate 2 MG/ML SYRINGE IVP PRN ×2 (16:52→22:22)
[2021-08-29 19:46] LABS: Adenovirus F 40/41 PCR Not detected (Not detect); Astrovirus PCR Not detected (Not detect); Campylobacter by PCR Not detected (Not detect); Cryptosporidium by PCR Not detected (Not detect); Cyclospora cayetanensis PCR Not detected (Not detect); Entamoeba histolytica PCR Not detected (Not detect); Enteroaggregative E.coli(EAEC) Not detected (Not detect); Enteropathogenic E.coli(EPEC) Not detected (Not detect); Enterotoxigenic E.coli (ETEC) Not detected (Not detect); Giardia lamblia PCR Not detected (Not detect); Norovirus GI/GII PCR Not detected (Not detect); Plesiomonas shigelloides PCR Not detected (Not detect); Rotavirus A PCR Not detected (Not detect); Salmonella PCR Not detected (Not detect); Sapovirus PCR Not detected (Not detect); Shig/EnteroinvasiveE coli EIEC Not detected (Not detect); Shigalike tox-prod E coli STEC Not detected (Not detect); Vibrio PCR Not detected (Not detect); Vibrio cholerae PCR Not detected (Not detect); Yersinia enterocolitica PCR Not detected (Not detect)
[2021-08-29 19:48] LABS: C.difficile Toxin A/B Gene PCR DETECTED (Not detect)
[2021-08-29] MEDS: Colchicine 0.6 MG TABLET PO SCH (20:30)
[2021-08-29] MEDS: Aspirin Enteric Coated 325 MG Tablet PO SCH (20:30)
[2021-08-29] MEDS: Sucralfate 1 GM TABLET PO SCH (20:30)
[2021-08-29] MEDS: *HR* Ticagrelor 90 MG TABLET PO SCH (20:30)
[2021-08-29] MEDS: Gabapentin 300 MG CAPSULE PO SCH (20:31)
[2021-08-29] MEDS ORDERED: *HR* Heparin 5,000 UNIT/ML VIAL SQ SCH (22:00)
[2021-08-29] MEDS: Ondansetron 4 MG/2 ML VIAL IVP PRN (22:18)
[2021-08-29] MEDS: Lactobacillus 1 EACH CAP.SPRINK PO SCH (22:18)
[2021-08-29] MEDS: Vancomycin Oral Soln 125 MG/2.5 ML UDC PO SCH (22:31)
[2021-08-30 03:11] LABS: Basophils % 0.2 %; Hematocrit 38.3 % (37.5-50.1); Hemoglobin 12.3 g/dL (12.9-16.9); Immature Granulocytes % 0.4 % (0-4); Lymphocytes # 0.9 K/mcL (0.6-4.6); Lymphocytes % 8.8 %; Mean Corpuscular HGB Conc 32.1 g/dL (31.6-35.5); Mean Corpuscular Hemoglobin 30.4 pg (28.0-33.3); Mean Corpuscular Volume 94.8 fL (83.0-100.0); Mean Platelet Volume 9.8 fL (9.4-12.4); Monocytes # 0.3 K/mcL (0.0-1.3); Neutrophils # 8.9 K/mcL (1.6-8.9); Platelet Count 282 K/mcL (140-400); Red Blood Count 4.04 M/mcL (4.19-5.50); Red Cell Distribution Width 13.7 % (11.5-14.5); Segmented Neutrophils % 87.6 %; White Blood Count 10.1 K/mcL (4.3-11.1)
[2021-08-30 03:31] LABS: BUN/Creatinine Ratio 20 (6-26); Blood Urea Nitrogen 17 mg/dL (6-20); Calcium 8.5 mg/dL (8.6-10.3); Carbon Dioxide 24 mEq/L (23-29); Chloride 105 mEq/L (98-107); Glucose 118 mg/dL (70-105); Magnesium 2.1 mg/dL (1.6-2.6); Osmolality,Calculated 287 (280-300); Phosphorous 3.6 mg/dL (2.7-4.5); Potassium 4.1 mEq/L (3.5-5.1); Sodium 137 mEq/L (136-145); eGFR For African Americans > 60 (> 60); eGFR For Non-African Americans > 60 (> 60)
[2021-08-30] MEDS ORDERED: *HR* OxyCODONE Immed Rel 5 MG TABLET PO PRN (07:35)
[2021-08-30 07:59] LABS: Lactate Dehydrogenase 110 Units/L (140-271)
[2021-08-30] MEDS: Aspirin Enteric Coated 325 MG Tablet PO SCH ×2 (09:26→21:25)
[2021-08-30] MEDS: Furosemide 20 MG TABLET PO SCH (09:27)
[2021-08-30] MEDS: Metoprolol XL (24 HR) Succ 25 MG TAB.ER.24H PO SCH (09:27)
[2021-08-30] MEDS: Multivit/Ca/Min/Fe/FA 1 TAB TABLET PO SCH (09:27)
[2021-08-30] MEDS: Sucralfate 1 GM TABLET PO SCH ×2 (09:27→21:25)
[2021-08-30] MEDS: Colchicine 0.6 MG TABLET PO SCH ×2 (09:27→21:27)
[2021-08-30] MEDS: Lactobacillus 1 EACH CAP.SPRINK PO SCH ×2 (09:28→21:27)
[2021-08-30] MEDS: Isosorbide MONOnitrate (24 HR) 30 MG TAB.ER.24H PO SCH (09:28)
[2021-08-30] MEDS: *HR* Ticagrelor 90 MG TABLET PO SCH (09:28)
[2021-08-30] MEDS: Vancomycin Oral Soln 125 MG/2.5 ML UDC PO SCH ×4 (09:28→21:27)
[2021-08-30] MEDS: Gabapentin 300 MG CAPSULE PO SCH ×3 (09:28→21:26)
[2021-08-30] MEDS: MethylPREDNISolone 40 MG/ML VIAL IVP SCH (09:29)
[2021-08-30] MEDS: Morphine Sulfate 2 MG/ML SYRINGE IVP PRN ×3 (09:34→21:28)
[2021-08-30] MEDS: Ondansetron 4 MG/2 ML VIAL IVP PRN (16:18)
[2021-08-30] MEDS: *HR* Heparin 5,000 UNIT/ML VIAL SQ SCH (21:28)
[2021-08-31] MEDS: *HR* OxyCODONE Immed Rel 5 MG TABLET PO PRN (00:53)
[2021-08-31] MEDS: Ondansetron 4 MG/2 ML VIAL IVP PRN ×3 (00:53→23:37)
[2021-08-31] MEDS: *HR* Heparin 5,000 UNIT/ML VIAL SQ SCH ×3 (05:10→23:32)
[2021-08-31 08:27] LABS: Basophils % 0.1 %; Eosinophils # 0.1 K/mcL (0.0-0.6); Eosinophils % 0.5 %; Hematocrit 43.1 % (37.5-50.1); Immature Granulocytes % 0.3 % (0-4); Lymphocytes # 3.6 K/mcL (0.6-4.6); Lymphocytes % 26.6 %; Mean Corpuscular HGB Conc 32.7 g/dL (31.6-35.5); Mean Corpuscular Hemoglobin 29.9 pg (28.0-33.3); Mean Corpuscular Volume 91.3 fL (83.0-100.0); Mean Platelet Volume 9.4 fL (9.4-12.4); Monocytes # 0.8 K/mcL (0.0-1.3); Monocytes % 5.8 %; Neutrophils # 8.9 K/mcL (1.6-8.9); Platelet Count 296 K/mcL (140-400); Red Blood Count 4.72 M/mcL (4.19-5.50); Red Cell Distribution Width 13.5 % (11.5-14.5); Segmented Neutrophils % 66.7 %; White Blood Count 13.4 K/mcL (4.3-11.1)
[2021-08-31 08:29] LABS: Hemoglobin 14.1 g/dL (12.9-16.9)
[2021-08-31 08:45] LABS: BUN/Creatinine Ratio 22 (6-26); Blood Urea Nitrogen 22 mg/dL (6-20); Calcium 8.9 mg/dL (8.6-10.3); Carbon Dioxide 27 mEq/L (23-29); Chloride 103 mEq/L (98-107); Glucose 101 mg/dL (70-105); Osmolality,Calculated 287 (280-300); Potassium 3.5 mEq/L (3.5-5.1); Sodium 137 mEq/L (136-145); eGFR For African Americans > 60 (> 60); eGFR For Non-African Americans > 60 (> 60)
[2021-08-31] MEDS: Gabapentin 300 MG CAPSULE PO SCH ×3 (08:53→23:31)
[2021-08-31] MEDS: Multivit/Ca/Min/Fe/FA 1 TAB TABLET PO SCH (08:54)
[2021-08-31] MEDS: Isosorbide MONOnitrate (24 HR) 30 MG TAB.ER.24H PO SCH (08:54)
[2021-08-31] MEDS: Lactobacillus 1 EACH CAP.SPRINK PO SCH ×2 (08:54→23:31)
[2021-08-31] MEDS: Aspirin Enteric Coated 325 MG Tablet PO SCH ×2 (08:54→23:31)
[2021-08-31] MEDS: Metoprolol XL (24 HR) Succ 25 MG TAB.ER.24H PO SCH (08:54)
[2021-08-31] MEDS: Furosemide 20 MG TABLET PO SCH (08:55)
[2021-08-31] MEDS: Sucralfate 1 GM TABLET PO SCH ×2 (08:55→23:30)
[2021-08-31] MEDS: Vancomycin Oral Soln 125 MG/2.5 ML UDC PO SCH ×4 (08:55→23:31)
[2021-08-31] MEDS: Colchicine 0.6 MG TABLET PO SCH ×2 (08:55→23:31)
[2021-08-31] MEDS: Morphine Sulfate 2 MG/ML SYRINGE IVP PRN ×3 (09:05→23:38)
[2021-08-31] MEDS: Melatonin 3 MG TABLET PO PRN (23:31)
[2021-09-01 01:39] LABS: Basophils # 0.1 K/mcL (0.0-0.2); Basophils % 0.6 %; Eosinophils # 0.2 K/mcL (0.0-0.6); Eosinophils % 1.3 %; Hemoglobin 13.9 g/dL (12.9-16.9); Immature Granulocytes % 0.6 % (0-4); Lymphocytes # 4.2 K/mcL (0.6-4.6); Lymphocytes % 31.1 %; Mean Corpuscular HGB Conc 32.3 g/dL (31.6-35.5); Mean Corpuscular Hemoglobin 30.1 pg (28.0-33.3); Mean Corpuscular Volume 93.1 fL (83.0-100.0); Mean Platelet Volume 9.4 fL (9.4-12.4); Monocytes # 0.9 K/mcL (0.0-1.3); Monocytes % 6.7 %; Platelet Count 290 K/mcL (140-400); Red Blood Count 4.62 M/mcL (4.19-5.50); Red Cell Distribution Width 13.8 % (11.5-14.5); Segmented Neutrophils % 59.7 %; White Blood Count 13.5 K/mcL (4.3-11.1)
[2021-09-01 02:08] LABS: BUN/Creatinine Ratio 22 (6-26); Blood Urea Nitrogen 26 mg/dL (6-20); Calcium 8.5 mg/dL (8.6-10.3); Carbon Dioxide 25 mEq/L (23-29); Chloride 105 mEq/L (98-107); Glucose 91 mg/dL (70-105); Osmolality,Calculated 294 (280-300); Potassium 3.9 mEq/L (3.5-5.1); Sodium 140 mEq/L (136-145); eGFR For African Americans > 60 (> 60); eGFR For Non-African Americans > 60 (> 60)
[2021-09-01] MEDS: *HR* OxyCODONE Immed Rel 5 MG TABLET PO PRN ×3 (05:25→21:07)
[2021-09-01] MEDS: *HR* Heparin 5,000 UNIT/ML VIAL SQ SCH ×2 (05:26→14:20)
[2021-09-01] MEDS: Lactobacillus 1 EACH CAP.SPRINK PO SCH ×2 (08:35→19:56)
[2021-09-01] MEDS: Vancomycin Oral Soln 125 MG/2.5 ML UDC PO SCH ×4 (08:35→19:58)
[2021-09-01] MEDS: Metoprolol XL (24 HR) Succ 25 MG TAB.ER.24H PO SCH (08:35)
[2021-09-01] MEDS: Colchicine 0.6 MG TABLET PO SCH ×2 (08:36→19:57)
[2021-09-01] MEDS: Gabapentin 300 MG CAPSULE PO SCH ×3 (08:36→19:58)
[2021-09-01] MEDS: Multivit/Ca/Min/Fe/FA 1 TAB TABLET PO SCH (08:36)
[2021-09-01] MEDS: Isosorbide MONOnitrate (24 HR) 30 MG TAB.ER.24H PO SCH (08:36)
[2021-09-01] MEDS: Aspirin Enteric Coated 325 MG Tablet PO SCH ×2 (08:36→19:56)
[2021-09-01] MEDS: Sucralfate 1 GM TABLET PO SCH ×2 (08:38→19:57)
[2021-09-01] MEDS ORDERED: Ringers Solution, Lactated 1,000 ML IVC SCH (10:15)
[2021-09-01] MEDS: Morphine Sulfate 2 MG/ML SYRINGE IVP PRN ×2 (12:05→17:58)
[2021-09-01] MEDS: Melatonin 3 MG TABLET PO PRN (21:07)
[2021-09-02 02:14] LABS: Basophils # 0.1 K/mcL (0.0-0.2); Basophils % 0.4 %; Eosinophils # 0.4 K/mcL (0.0-0.6); Eosinophils % 3.4 %; Hematocrit 40.5 % (37.5-50.1); Hemoglobin 13.1 g/dL (12.9-16.9); Immature Granulocytes % 0.5 % (0-4); Lymphocytes # 3.5 K/mcL (0.6-4.6); Mean Corpuscular HGB Conc 32.3 g/dL (31.6-35.5); Mean Corpuscular Hemoglobin 29.8 pg (28.0-33.3); Mean Corpuscular Volume 92.3 fL (83.0-100.0); Mean Platelet Volume 9.4 fL (9.4-12.4); Monocytes # 0.8 K/mcL (0.0-1.3); Monocytes % 6.2 %; Neutrophils # 7.4 K/mcL (1.6-8.9); Platelet Count 286 K/mcL (140-400); Red Blood Count 4.39 M/mcL (4.19-5.50); Red Cell Distribution Width 13.6 % (11.5-14.5); Segmented Neutrophils % 60.5 %; White Blood Count 12.2 K/mcL (4.3-11.1)
[2021-09-02] MEDS: Ondansetron 4 MG/2 ML VIAL IVP PRN ×3 (02:22→20:59)
[2021-09-02 02:23] LABS: BUN/Creatinine Ratio 21 (6-26); Blood Urea Nitrogen 25 mg/dL (6-20); Calcium 8.3 mg/dL (8.6-10.3); Carbon Dioxide 27 mEq/L (23-29); Chloride 104 mEq/L (98-107); Glucose 82 mg/dL (70-105); Osmolality,Calculated 287 (280-300); Sodium 137 mEq/L (136-145); eGFR For African Americans > 60 (> 60); eGFR For Non-African Americans > 60 (> 60)
[2021-09-02] MEDS: Vancomycin Oral Soln 125 MG/2.5 ML UDC PO SCH ×4 (08:12→20:39)
[2021-09-02] MEDS: Sucralfate 1 GM TABLET PO SCH ×2 (08:13→20:39)
[2021-09-02] MEDS: Isosorbide MONOnitrate (24 HR) 30 MG TAB.ER.24H PO SCH (08:13)
[2021-09-02] MEDS: Colchicine 0.6 MG TABLET PO SCH ×2 (08:13→20:39)
[2021-09-02] MEDS: Multivit/Ca/Min/Fe/FA 1 TAB TABLET PO SCH (08:13)
[2021-09-02] MEDS: Aspirin 325 MG TABLET PO SCH (08:14)
[2021-09-02] MEDS: Gabapentin 300 MG CAPSULE PO SCH ×3 (08:14→20:39)
[2021-09-02] MEDS: *HR* OxyCODONE Immed Rel 5 MG TABLET PO PRN ×2 (08:15→15:32)
[2021-09-02] MEDS: Metoprolol XL (24 HR) Succ 25 MG TAB.ER.24H PO SCH (08:15)
[2021-09-02] MEDS: Lactobacillus 1 EACH CAP.SPRINK PO SCH ×2 (08:15→20:39)
[2021-09-02 10:00] LABS: Magnesium 1.9 mg/dL (1.6-2.6); Phosphorous 4.4 mg/dL (2.7-4.5)
[2021-09-02] MEDS: Morphine Sulfate 2 MG/ML SYRINGE IVP PRN ×2 (12:27→21:00)
[2021-09-02] MEDS: Melatonin 3 MG TABLET PO PRN (21:00)
[2021-09-03] MEDS: *HR* OxyCODONE Immed Rel 5 MG TABLET PO PRN ×3 (00:32→23:12)
[2021-09-03] MEDS: Ondansetron 4 MG/2 ML VIAL IVP PRN ×2 (05:27→20:25)
[2021-09-03 06:31] LABS: Basophils # 0.1 K/mcL (0.0-0.2); Basophils % 0.4 %; Eosinophils # 0.5 K/mcL (0.0-0.6); Eosinophils % 3.3 %; Hematocrit 44.1 % (37.5-50.1); Hemoglobin 14.4 g/dL (12.9-16.9); Immature Granulocytes % 0.6 % (0-4); Lymphocytes # 2.5 K/mcL (0.6-4.6); Lymphocytes % 18.5 %; Mean Corpuscular HGB Conc 32.7 g/dL (31.6-35.5); Mean Corpuscular Hemoglobin 29.9 pg (28.0-33.3); Mean Corpuscular Volume 91.5 fL (83.0-100.0); Mean Platelet Volume 9.5 fL (9.4-12.4); Monocytes # 1.1 K/mcL (0.0-1.3); Monocytes % 8.4 %; Neutrophils # 9.3 K/mcL (1.6-8.9); Platelet Count 286 K/mcL (140-400); Red Blood Count 4.82 M/mcL (4.19-5.50); Red Cell Distribution Width 13.8 % (11.5-14.5); Segmented Neutrophils % 68.8 %; White Blood Count 13.6 K/mcL (4.3-11.1)
[2021-09-03 06:59] LABS: BUN/Creatinine Ratio 15 (6-26); Blood Urea Nitrogen 17 mg/dL (6-20); Calcium 8.9 mg/dL (8.6-10.3); Carbon Dioxide 25 mEq/L (23-29); Chloride 100 mEq/L (98-107); Glucose 97 mg/dL (70-105); Osmolality,Calculated 275 (280-300); Phosphorous 3.6 mg/dL (2.7-4.5); Potassium 4.1 mEq/L (3.5-5.1); Sodium 132 mEq/L (136-145); eGFR For African Americans > 60 (> 60); eGFR For Non-African Americans > 60 (> 60)
[2021-09-03] MEDS: Colchicine 0.6 MG TABLET PO SCH ×2 (07:55→20:33)
[2021-09-03] MEDS: Sucralfate 1 GM TABLET PO SCH ×2 (07:55→20:33)
[2021-09-03] MEDS: Lactobacillus 1 EACH CAP.SPRINK PO SCH ×2 (07:55→20:32)
[2021-09-03] MEDS: Aspirin 325 MG TABLET PO SCH (07:55)
[2021-09-03] MEDS: Multivit/Ca/Min/Fe/FA 1 TAB TABLET PO SCH (07:56)
[2021-09-03] MEDS: Gabapentin 300 MG CAPSULE PO SCH ×3 (07:56→20:33)
[2021-09-03] MEDS: Vancomycin Oral Soln 125 MG/2.5 ML UDC PO SCH ×4 (07:56→20:32)
[2021-09-03] MEDS: Isosorbide MONOnitrate (24 HR) 30 MG TAB.ER.24H PO SCH (07:56)
[2021-09-03] MEDS: Metoprolol XL (24 HR) Succ 25 MG TAB.ER.24H PO SCH (07:56)
[2021-09-03] MEDS: Morphine Sulfate 2 MG/ML SYRINGE IVP PRN ×2 (13:31→20:27)
[2021-09-04] MEDS: Morphine Sulfate 2 MG/ML SYRINGE IVP PRN ×3 (02:53→23:07)
[2021-09-04] MEDS: Acetaminophen 325 MG TABLET PO PRN ×2 (03:23→23:07)
[2021-09-04 05:36] LABS: Basophils # 0.1 K/mcL (0.0-0.2); Basophils % 0.4 %; Eosinophils # 0.3 K/mcL (0.0-0.6); Eosinophils % 2.1 %; Hematocrit 40.9 % (37.5-50.1); Hemoglobin 13.8 g/dL (12.9-16.9); Immature Granulocytes % 0.6 % (0-4); Lymphocytes # 2.3 K/mcL (0.6-4.6); Lymphocytes % 15.9 %; Mean Corpuscular HGB Conc 33.7 g/dL (31.6-35.5); Mean Corpuscular Hemoglobin 30.7 pg (28.0-33.3); Mean Corpuscular Volume 90.9 fL (83.0-100.0); Mean Platelet Volume 9.8 fL (9.4-12.4); Monocytes # 1.5 K/mcL (0.0-1.3); Monocytes % 10.4 %; Neutrophils # 10.1 K/mcL (1.6-8.9); Platelet Count 244 K/mcL (140-400); Red Cell Distribution Width 13.6 % (11.5-14.5); Segmented Neutrophils % 70.6 %; White Blood Count 14.3 K/mcL (4.3-11.1)
[2021-09-04 05:55] LABS: BUN/Creatinine Ratio 14 (6-26); Blood Urea Nitrogen 14 mg/dL (6-20); Calcium 8.5 mg/dL (8.6-10.3); Carbon Dioxide 26 mEq/L (23-29); Chloride 98 mEq/L (98-107); Glucose 100 mg/dL (70-105); Magnesium 1.9 mg/dL (1.6-2.6); Osmolality,Calculated 271 (280-300); Phosphorous 3.1 mg/dL (2.7-4.5); Potassium 4.2 mEq/L (3.5-5.1); Sodium 130 mEq/L (136-145); eGFR For African Americans > 60 (> 60); eGFR For Non-African Americans > 60 (> 60)
[2021-09-04] MEDS: *HR* OxyCODONE Immed Rel 5 MG TABLET PO PRN ×3 (06:06→19:45)
[2021-09-04] MEDS: Ondansetron 4 MG/2 ML VIAL IVP PRN ×3 (06:06→21:27)
[2021-09-04] MEDS: Colchicine 0.6 MG TABLET PO SCH ×2 (08:35→19:45)
[2021-09-04] MEDS: Vancomycin Oral Soln 125 MG/2.5 ML UDC PO SCH ×4 (08:36→19:44)
[2021-09-04] MEDS: Sucralfate 1 GM TABLET PO SCH ×2 (08:36→19:46)
[2021-09-04] MEDS: Gabapentin 300 MG CAPSULE PO SCH ×3 (08:36→19:46)
[2021-09-04] MEDS: Metoprolol XL (24 HR) Succ 25 MG TAB.ER.24H PO SCH (08:36)
[2021-09-04] MEDS: Isosorbide MONOnitrate (24 HR) 30 MG TAB.ER.24H PO SCH (08:36)
[2021-09-04] MEDS: Aspirin 325 MG TABLET PO SCH (08:36)
[2021-09-04] MEDS: Multivit/Ca/Min/Fe/FA 1 TAB TABLET PO SCH (08:36)
[2021-09-04] MEDS: Lactobacillus 1 EACH CAP.SPRINK PO SCH ×2 (08:36→19:44)
[2021-09-04] MEDS ORDERED: Morphine Sulfate 2 MG/ML SYRINGE IVP PRN ×3 (09:11→15:02)
[2021-09-04] MEDS ORDERED: Isovue-370 500 ML BOTTLE IVP ONE (11:24)
[2021-09-04] MEDS ORDERED: 0.9 % Sodium Chloride 1,000 ML IVC SCH (11:30)
[2021-09-04] MEDS ORDERED: Furosemide 20 MG/2 ML VIAL IVP ONE ×2 (16:49→18:14)
[2021-09-04 16:58] LABS: INR 1.2; Prothrombin Time 13.6 Seconds (9.4-12.1)
[2021-09-04] MEDS ORDERED: Perflutren Lipid Microsphere 1.3 ML in 0.9 % Sodium Chloride 8.7 ML IVP PRN (17:02)
[2021-09-05] MEDS: Morphine Sulfate 2 MG/ML SYRINGE IVP PRN ×4 (01:49→12:08)
[2021-09-05 02:22] LABS: Basophils # 0.1 K/mcL (0.0-0.2); Basophils % 0.4 %; Eosinophils # 0.2 K/mcL (0.0-0.6); Eosinophils % 1.8 %; Hemoglobin 13.1 g/dL (12.9-16.9); Immature Granulocytes % 0.7 % (0-4); Lymphocytes % 15.8 %; Mean Corpuscular HGB Conc 32.8 g/dL (31.6-35.5); Mean Corpuscular Hemoglobin 29.8 pg (28.0-33.3); Mean Corpuscular Volume 91.1 fL (83.0-100.0); Mean Platelet Volume 9.7 fL (9.4-12.4); Monocytes # 1.8 K/mcL (0.0-1.3); Monocytes % 14.5 %; Neutrophils # 8.4 K/mcL (1.6-8.9); Platelet Count 249 K/mcL (140-400); Red Blood Count 4.39 M/mcL (4.19-5.50); Red Cell Distribution Width 13.5 % (11.5-14.5); Segmented Neutrophils % 66.8 %; White Blood Count 12.5 K/mcL (4.3-11.1)
[2021-09-05 02:25] LABS: BUN/Creatinine Ratio 11 (6-26); Blood Urea Nitrogen 11 mg/dL (6-20); Calcium 8.5 mg/dL (8.6-10.3); Carbon Dioxide 27 mEq/L (23-29); Chloride 93 mEq/L (98-107); Glucose 109 mg/dL (70-105); Osmolality,Calculated 270 (280-300); Potassium 3.8 mEq/L (3.5-5.1); Sodium 130 mEq/L (136-145); eGFR For African Americans > 60 (> 60); eGFR For Non-African Americans > 60 (> 60)
[2021-09-05 02:36] LABS: INR 1.3
[2021-09-05] MEDS: Ondansetron 4 MG/2 ML VIAL IVP PRN ×2 (04:47→19:00)
[2021-09-05] MEDS: Multivit/Ca/Min/Fe/FA 1 TAB TABLET PO SCH (07:45)
[2021-09-05] MEDS: Vancomycin Oral Soln 125 MG/2.5 ML UDC PO SCH ×4 (07:45→20:31)
[2021-09-05] MEDS: Gabapentin 300 MG CAPSULE PO SCH (07:45)
[2021-09-05] MEDS: Aspirin 325 MG TABLET PO SCH (07:45)
[2021-09-05] MEDS: Sucralfate 1 GM TABLET PO SCH ×2 (07:45→20:32)
[2021-09-05] MEDS: Colchicine 0.6 MG TABLET PO SCH ×2 (07:45→20:32)
[2021-09-05] MEDS: Isosorbide MONOnitrate (24 HR) 30 MG TAB.ER.24H PO SCH (07:45)
[2021-09-05] MEDS: Lactobacillus 1 EACH CAP.SPRINK PO SCH ×2 (07:46→20:32)
[2021-09-05] MEDS: *HR* OxyCODONE Immed Rel 5 MG TABLET PO PRN ×3 (07:46→19:00)
[2021-09-05] MEDS: Metoprolol XL (24 HR) Succ 25 MG TAB.ER.24H PO SCH (07:46)
[2021-09-05] MEDS ORDERED: Furosemide 40 MG/4 ML VIAL IVP SCH (09:00)
[2021-09-05] MEDS ORDERED: *HR* FentaNYL (PF) 100 MCG/2 ML VIAL IVP ONE (11:08)
[2021-09-05] MEDS ORDERED: Sennosides/Docusate Sodium TABLET PO SCH (13:45)
[2021-09-05] MEDS: *HR* HYDROmorphone (PF) 1 MG/ML SYRINGE IVP PRN ×2 (14:03→20:32)
[2021-09-05 14:18] LABS: RBC,Pleural Fluid 303000 RBC/mcL
[2021-09-05 14:33] LABS: Total Protein,Pleural Fluid 4.2 g/dL
[2021-09-05 15:02] LABS: Appearance of Pleural Fl Bloody (Clear); Volume of Pleural Fluid 9.2 mL
[2021-09-05 15:08] LABS: Basophils,Pleural Fluid 0 %
[2021-09-05] MEDS: Gabapentin 100 MG CAPSULE PO SCH ×2 (16:12→20:32)
[2021-09-06] MEDS ORDERED: *HR* LORazepam 0.5 MG TABLET PO ONE (00:55)
[2021-09-06 01:31] LABS: Basophils # 0.1 K/mcL (0.0-0.2); Basophils % 0.5 %; Eosinophils # 0.3 K/mcL (0.0-0.6); Eosinophils % 1.9 %; Hematocrit 41.7 % (37.5-50.1); Hemoglobin 13.5 g/dL (12.9-16.9); Immature Granulocytes % 0.8 % (0-4); Lymphocytes # 2.4 K/mcL (0.6-4.6); Mean Corpuscular HGB Conc 32.4 g/dL (31.6-35.5); Mean Corpuscular Hemoglobin 29.7 pg (28.0-33.3); Mean Corpuscular Volume 91.9 fL (83.0-100.0); Mean Platelet Volume 10.1 fL (9.4-12.4); Monocytes # 1.9 K/mcL (0.0-1.3); Monocytes % 14.6 %; Neutrophils # 8.5 K/mcL (1.6-8.9); Platelet Count 266 K/mcL (140-400); Red Blood Count 4.54 M/mcL (4.19-5.50); Red Cell Distribution Width 13.5 % (11.5-14.5); Segmented Neutrophils % 64.2 %; White Blood Count 13.3 K/mcL (4.3-11.1)
[2021-09-06 01:43] LABS: BUN/Creatinine Ratio 13 (6-26); Blood Urea Nitrogen 14 mg/dL (6-20); Calcium 8.7 mg/dL (8.6-10.3); Carbon Dioxide 30 mEq/L (23-29); Chloride 92 mEq/L (98-107); Glucose 112 mg/dL (70-105); Osmolality,Calculated 271 (280-300); Potassium 3.7 mEq/L (3.5-5.1); Sodium 130 mEq/L (136-145); eGFR For African Americans > 60 (> 60); eGFR For Non-African Americans > 60 (> 60)
[2021-09-06] MEDS: *HR* HYDROmorphone (PF) 1 MG/ML SYRINGE IVP PRN ×5 (05:02→22:29)
[2021-09-06] MEDS ORDERED: Perflutren Lipid Microsphere 1.3 ML in 0.9 % Sodium Chloride 8.7 ML IVP PRN (06:00)
[2021-09-06] MEDS: Gabapentin 100 MG CAPSULE PO SCH ×3 (08:41→22:26)
[2021-09-06] MEDS: Multivit/Ca/Min/Fe/FA 1 TAB TABLET PO SCH (08:41)
[2021-09-06] MEDS: Lactobacillus 1 EACH CAP.SPRINK PO SCH ×2 (08:41→22:28)
[2021-09-06] MEDS: Aspirin 325 MG TABLET PO SCH (08:41)
[2021-09-06] MEDS: Vancomycin Oral Soln 125 MG/2.5 ML UDC PO SCH ×4 (08:42→22:37)
[2021-09-06] MEDS: Sucralfate 1 GM TABLET PO SCH ×2 (08:42→22:28)
[2021-09-06] MEDS: Ondansetron 4 MG/2 ML VIAL IVP PRN ×2 (08:42→22:37)
[2021-09-06] MEDS: Colchicine 0.6 MG TABLET PO SCH ×2 (08:42→22:28)
[2021-09-06] MEDS: Metoprolol XL (24 HR) Succ 25 MG TAB.ER.24H PO SCH (08:43)
[2021-09-06] MEDS: *HR* OxyCODONE Immed Rel 5 MG TABLET PO PRN ×3 (08:43→22:28)
[2021-09-06] MEDS: Isosorbide MONOnitrate (24 HR) 30 MG TAB.ER.24H PO SCH (08:43)
[2021-09-06] MEDS ORDERED: Furosemide 20 MG TABLET PO PRN (14:25)
[2021-09-06] MEDS: Furosemide 20 MG TABLET PO SCH (16:22)
[2021-09-06 20:09] LABS: Fluid Source for Cholesterol PLEURAL FLUID
[2021-09-07] MEDS: *HR* HYDROmorphone (PF) 1 MG/ML SYRINGE IVP PRN ×4 (02:25→21:33)
[2021-09-07 03:23] LABS: Basophils # 0.1 K/mcL (0.0-0.2); Basophils % 0.6 %; Eosinophils # 0.3 K/mcL (0.0-0.6); Hematocrit 39.7 % (37.5-50.1); Hemoglobin 12.7 g/dL (12.9-16.9); Immature Granulocytes % 0.6 % (0-4); Lymphocytes # 1.5 K/mcL (0.6-4.6); Lymphocytes % 16.1 %; Mean Corpuscular Hemoglobin 29.5 pg (28.0-33.3); Mean Corpuscular Volume 92.1 fL (83.0-100.0); Monocytes % 11.2 %; Neutrophils # 6.3 K/mcL (1.6-8.9); Platelet Count 273 K/mcL (140-400); Red Blood Count 4.31 M/mcL (4.19-5.50); Red Cell Distribution Width 13.5 % (11.5-14.5); Segmented Neutrophils % 68.5 %; White Blood Count 9.3 K/mcL (4.3-11.1)
[2021-09-07 03:47] LABS: BUN/Creatinine Ratio 13 (6-26); Blood Urea Nitrogen 13 mg/dL (6-20); Calcium 8.5 mg/dL (8.6-10.3); Carbon Dioxide 29 mEq/L (23-29); Chloride 94 mEq/L (98-107); Glucose 89 mg/dL (70-105); Osmolality,Calculated 274 (280-300); Potassium 3.4 mEq/L (3.5-5.1); Sodium 132 mEq/L (136-145); eGFR For African Americans > 60 (> 60); eGFR For Non-African Americans > 60 (> 60)
[2021-09-07] MEDS: *HR* OxyCODONE Immed Rel 5 MG TABLET PO PRN ×3 (04:16→22:48)
[2021-09-07 06:35] LABS: Cholesterol,Body Fluid 95 mg/dL
[2021-09-07] MEDS: Lactobacillus 1 EACH CAP.SPRINK PO SCH ×2 (08:52→21:32)
[2021-09-07] MEDS: Multivit/Ca/Min/Fe/FA 1 TAB TABLET PO SCH (08:52)
[2021-09-07] MEDS: Furosemide 20 MG TABLET PO SCH (08:52)
[2021-09-07] MEDS: Aspirin 325 MG TABLET PO SCH (08:52)
[2021-09-07] MEDS: Sucralfate 1 GM TABLET PO SCH ×2 (08:52→21:32)
[2021-09-07] MEDS: Metoprolol XL (24 HR) Succ 25 MG TAB.ER.24H PO SCH (08:53)
[2021-09-07] MEDS: Colchicine 0.6 MG TABLET PO SCH ×2 (08:53→21:33)
[2021-09-07] MEDS: Gabapentin 100 MG CAPSULE PO SCH ×3 (08:53→21:33)
[2021-09-07] MEDS: Vancomycin Oral Soln 125 MG/2.5 ML UDC PO SCH ×4 (08:53→21:36)
[2021-09-07] MEDS: Isosorbide MONOnitrate (24 HR) 30 MG TAB.ER.24H PO SCH (08:59)
[2021-09-07] MEDS: Ondansetron 4 MG/2 ML VIAL IVP PRN ×3 (09:04→22:49)
[2021-09-08] MEDS: Acetaminophen 325 MG TABLET PO PRN (02:09)
[2021-09-08] MEDS: *HR* HYDROmorphone (PF) 1 MG/ML SYRINGE IVP PRN ×3 (02:10→20:05)
[2021-09-08 02:53] LABS: Basophils % 0.4 %; Eosinophils # 0.2 K/mcL (0.0-0.6); Eosinophils % 2.4 %; Hematocrit 35.4 % (37.5-50.1); Hemoglobin 11.9 g/dL (12.9-16.9); Immature Granulocytes % 0.3 % (0-4); Lymphocytes # 1.6 K/mcL (0.6-4.6); Lymphocytes % 17.1 %; Mean Corpuscular HGB Conc 33.6 g/dL (31.6-35.5); Mean Corpuscular Hemoglobin 30.8 pg (28.0-33.3); Mean Corpuscular Volume 91.7 fL (83.0-100.0); Monocytes # 1.2 K/mcL (0.0-1.3); Monocytes % 12.9 %; Neutrophils # 6.3 K/mcL (1.6-8.9); Platelet Count 235 K/mcL (140-400); Red Blood Count 3.86 M/mcL (4.19-5.50); Red Cell Distribution Width 13.4 % (11.5-14.5); Segmented Neutrophils % 66.9 %; White Blood Count 9.4 K/mcL (4.3-11.1)
[2021-09-08 03:11] LABS: BUN/Creatinine Ratio 13 (6-26); Blood Urea Nitrogen 12 mg/dL (6-20); Calcium 8.4 mg/dL (8.6-10.3); Carbon Dioxide 29 mEq/L (23-29); Chloride 97 mEq/L (98-107); Glucose 89 mg/dL (70-105); Osmolality,Calculated 275 (280-300); Potassium 3.5 mEq/L (3.5-5.1); Sodium 133 mEq/L (136-145); eGFR For African Americans > 60 (> 60); eGFR For Non-African Americans > 60 (> 60)
[2021-09-08] MEDS: Gabapentin 100 MG CAPSULE PO SCH ×3 (08:39→20:05)
[2021-09-08] MEDS: Vancomycin Oral Soln 125 MG/2.5 ML UDC PO SCH ×3 (08:39→15:38)
[2021-09-08] MEDS: Colchicine 0.6 MG TABLET PO SCH ×2 (08:39→20:05)
[2021-09-08] MEDS: Furosemide 20 MG TABLET PO SCH (08:39)
[2021-09-08] MEDS: Aspirin 325 MG TABLET PO SCH (08:39)
[2021-09-08] MEDS: Isosorbide MONOnitrate (24 HR) 30 MG TAB.ER.24H PO SCH (08:39)
[2021-09-08] MEDS: Lactobacillus 1 EACH CAP.SPRINK PO SCH ×2 (08:39→20:04)
[2021-09-08] MEDS: Multivit/Ca/Min/Fe/FA 1 TAB TABLET PO SCH (08:39)
[2021-09-08] MEDS: Sucralfate 1 GM TABLET PO SCH ×2 (08:39→20:05)
[2021-09-08] MEDS: Metoprolol XL (24 HR) Succ 25 MG TAB.ER.24H PO SCH (08:40)
[2021-09-08] MEDS: *HR* OxyCODONE Immed Rel 5 MG TABLET PO PRN ×3 (08:44→22:56)
[2021-09-08] MEDS: Ondansetron 4 MG/2 ML VIAL IVP PRN (12:55)
[2021-09-08] MEDS: Melatonin 3 MG TABLET PO PRN (22:56)
[2021-09-09] MEDS: *HR* HYDROmorphone (PF) 1 MG/ML SYRINGE IVP PRN ×2 (01:31→14:42)
[2021-09-09 03:25] LABS: Basophils # 0.1 K/mcL (0.0-0.2); Basophils % 0.5 %; Eosinophils # 0.2 K/mcL (0.0-0.6); Eosinophils % 1.9 %; Hematocrit 37.4 % (37.5-50.1); Hemoglobin 12.1 g/dL (12.9-16.9); Immature Granulocytes % 0.5 % (0-4); Lymphocytes # 1.8 K/mcL (0.6-4.6); Lymphocytes % 17.5 %; Mean Corpuscular HGB Conc 32.4 g/dL (31.6-35.5); Mean Corpuscular Hemoglobin 29.2 pg (28.0-33.3); Mean Corpuscular Volume 90.3 fL (83.0-100.0); Mean Platelet Volume 9.9 fL (9.4-12.4); Monocytes % 9.9 %; Platelet Count 281 K/mcL (140-400); Red Blood Count 4.14 M/mcL (4.19-5.50); Red Cell Distribution Width 13.3 % (11.5-14.5); Segmented Neutrophils % 69.7 %
[2021-09-09 03:56] LABS: BUN/Creatinine Ratio 11 (6-26); Blood Urea Nitrogen 11 mg/dL (6-20); Calcium 8.4 mg/dL (8.6-10.3); Carbon Dioxide 23 mEq/L (23-29); Chloride 101 mEq/L (98-107); Glucose 82 mg/dL (70-105); Osmolality,Calculated 278 (280-300); Potassium 3.8 mEq/L (3.5-5.1); Sodium 135 mEq/L (136-145); eGFR For African Americans > 60 (> 60); eGFR For Non-African Americans > 60 (> 60)
[2021-09-09] MEDS: *HR* OxyCODONE Immed Rel 5 MG TABLET PO PRN (05:21)
[2021-09-09] MEDS: Sucralfate 1 GM TABLET PO SCH (09:07)
[2021-09-09] MEDS: Metoprolol XL (24 HR) Succ 25 MG TAB.ER.24H PO SCH (09:07)
[2021-09-09] MEDS: Furosemide 20 MG TABLET PO SCH (09:07)
[2021-09-09] MEDS: Colchicine 0.6 MG TABLET PO SCH (09:07)
[2021-09-09] MEDS: Lactobacillus 1 EACH CAP.SPRINK PO SCH (09:07)
[2021-09-09] MEDS: Gabapentin 100 MG CAPSULE PO SCH ×2 (09:07→15:37)
[2021-09-09] MEDS: Isosorbide MONOnitrate (24 HR) 30 MG TAB.ER.24H PO SCH (09:07)
[2021-09-09] MEDS: Aspirin 325 MG TABLET PO SCH (09:07)
[2021-09-09] MEDS: Multivit/Ca/Min/Fe/FA 1 TAB TABLET PO SCH (09:07)
[2021-09-09] MEDS: Ondansetron 4 MG/2 ML VIAL IVP PRN (09:24)
[2021-09-09 11:39] VITALS: BP 100/68; PULSE 87; TEMP 98.5; O2SAT 92
== END 2021-09-09 17:40 | disposition home or self-care (01) | DRG 372 ==
LOC: 2NENU 10:46 → EMEROOARM 10:46 → SUATTDRO 14:48 → 2NENU 15:57 → SUATTDRO 09-01 08:10
PROVIDERS: ADMIT Internal Medicine; ATTEND Student in an Organized Health Care Education/Training Program
PROC: IRPERMA (2021-09-05 12:00)